=== PATIENT | male | born 1985 | race Caucasian/White ===

== ENCOUNTER 2017-02-28 08:56 | Emergency (ER) | payer SELFPAY | END 2017-02-28 10:15 | disposition home or self-care (01) | LOC: ERS 08:56 | DX: J20.9 Acute bronchitis, unspecified (principal); E03.9 Hypothyroidism, unspecified; F41.9 Anxiety disorder, unspecified; F17.210 Nicotine dependence, cigarettes, uncomplicated | CPT/HCPCS: 99283 ==

== ENCOUNTER 2017-07-05 00:20 | Emergency (ER) | payer SELFPAY, OTHER ==
[2017-07-05 01:08] LABS: #Basophils 0.1 thou/uL (0.0-0.2); #Eosinphils 0.6 thou/uL (0.0-0.7); #Lymphocytes 2.6 thou/uL (1.20-3.40); #Monocytes 0.7 thou/uL (0.11-0.59); #Neutrophils 7.2 thou/uL (1.40-6.50); %Basophils 0.7 % (0.0-1.0); %Lymphocytes 23.1 % (21.0-51.0); %Monocytes 6.6 % (0.0-10.0); %Neutrophils 64.6 % (42.0-75.0); Hemoglobin 16.4 g/dL (14.0-18.0); Mean Corpuscular HGB CONC 34.2 g/dL (32.0-36.0); Mean Corpuscular Hemoglobin 31.1 pg (27.0-31.0); Mean Corpuscular Volume 91.1 fl (80.0-94.0); Mean Platelet Volume 7.3 fL (7.4-10.4); Platelet Count 254 thou/uL (130-400); RBC Distribution Width 11.6 % (11.5-14.5); Red Blood Cell (RBC) Count 5.27 mill/uL (4.70-6.10); White Blood Cell (WBC) Count 11.1 thou/uL (4.8-10.8)
[2017-07-05 01:27] LABS: ALT (SGPT) 25 U/L (8-55); AST (SGOT) 20 U/L (5-34); Albumin 4.3 g/dL (3.5-5.0); Alkaline Phosphatase 87 U/L (40-150); Anion Gap 12 mmol/L (10-20); BUN (Urea Nitrogen) 19 mg/dL (8.9-20.6); Bilirubin, Total 0.4 mg/dL (0.2-1.2); Calc. Creatinine Clearance 0 mL/min (70-130); Calcium 9.7 mg/dL (7.8-10.44); Carbon Dioxide 23 mmol/L (22-29); Chloride 107 mmol/L (98-107); Estimated GFR-MDRD 83; Globulin 2.4 g/dL (2.4-3.5); Glucose 138 mg/dL (70-105); Potassium 3.7 mmol/L (3.5-5.1); Protein, Total 6.7 g/dL (6.0-8.3); Sodium 138 mmol/L (136-145)
[2017-07-05 01:30] LABS: CKMB 1.1 ng/mL (0-6.6); Troponin I Less than 0.010 ng/mL (< 0.028)
[2017-07-05] MEDS ORDERED: Mag-Al 1200 mg/1200 mg/30 ML UDCUP ONE (01:59)
[2017-07-05] MEDS ORDERED: Lidocaine Viscous Sol 2% 15 ml UD Cup ONE (01:59)
[2017-07-05] MEDS ORDERED: Pantoprazole 40 MG VIAL ONE (01:59)
[2017-07-05 02:26] LABS: CK (CPK) 110 U/L (30-200); Lipase 32 U/L (8-78)
[2017-07-05 05:07] LABS: Troponin I Less than 0.010 ng/mL (< 0.028)
--- NOTE | 2017-07-05 07:42 | RAD ---
CHEST 1 VIEW: Date: 07/05/17 HISTORY: Chest pain. COMPARISON: 11/20/13. FINDINGS: Cardiac silhouette is magnified by projection. Pulmonary vasculature is unremarkable. Mediastinum is midline. No lobar consolidation or evidence of pneumothorax. IMPRESSION: No active cardiopulmonary abnormalities are demonstrated. POS: [facility]
--- NOTE | 2017-08-10 22:50 | EKG ---
Test Reason : Blood Pressure : / mmHG Vent. Rate : 061 BPM Atrial Rate : 061 BPM P-R Int : 166 ms QRS Dur : 094 ms QT Int : 408 ms P-R-T Axes : 032 -23 036 degrees QTc Int : 410 ms Normal sinus rhythm with sinus arrhythmia Normal ECG Confirmed by BRADY GUERRIER MD ([id number]), multimedia editor HEMAL RODAS ([id number]) on 08/10/2017 10:50:04 PM Referred By: Confirmed By:BRADY GUERRIER MD
== END 2017-07-05 05:51 | disposition home or self-care (01) ==
LOC: ERS 00:20
DX: R07.89 Other chest pain (principal); E03.9 Hypothyroidism, unspecified; F41.9 Anxiety disorder, unspecified; F17.210 Nicotine dependence, cigarettes, uncomplicated
CPT/HCPCS: 36415; 71045; 80053; 82553; 83690; 84484; 85025; 93005; 96374; C9113

== ENCOUNTER 2017-07-23 17:44 | Emergency (ER) | payer SELFPAY | END 2017-07-23 18:58 | disposition home or self-care (01) | LOC: ERS 17:44 | DX: J40 Bronchitis, not specified as acute or chronic (principal); E03.9 Hypothyroidism, unspecified; F41.9 Anxiety disorder, unspecified; F17.210 Nicotine dependence, cigarettes, uncomplicated | CPT/HCPCS: 99283 ==

== ENCOUNTER 2017-07-24 07:43 | Emergency (ER) | payer SELFPAY ==
--- NOTE | 2017-07-24 08:44 | RAD ---
SINGLE VIEW OF THE CHEST: Comparison: 07-05-17 History: Bronchitis, cough. FINDINGS: Single view of the chest shows a normal sized cardiomediastinal silhouette. There is no evidence of c onsolidation, mass, or pleural effusion. The bones are unremarkable. IMPRESSION: No evidence of acute cardiopulmonary disease. POS: [facility]
[2017-07-24] MEDS ORDERED: guaiFENesin/DM ER PO SCH (09:45)
== END 2017-07-24 10:42 | disposition home or self-care (01) ==
LOC: ERS 07:43
DX: J45.909 Unspecified asthma, uncomplicated (principal); Z71.6 Tobacco abuse counseling; E03.9 Hypothyroidism, unspecified; F41.9 Anxiety disorder, unspecified; F31.9 Bipolar disorder, unspecified; F17.210 Nicotine dependence, cigarettes, uncomplicated
CPT/HCPCS: 71045; 94640; 99406; J7620

== ENCOUNTER 2017-07-29 07:02 | Emergency (ER) | payer SELFPAY ==
[2017-07-29 07:34] LABS: #Basophils 0.1 thou/uL (0.0-0.2); #Eosinphils 0.2 thou/uL (0.0-0.7); #Lymphocytes 2.9 thou/uL (1.20-3.40); #Monocytes 0.9 thou/uL (0.11-0.59); #Neutrophils 6.8 thou/uL (1.40-6.50); %Basophils 0.7 % (0.0-1.0); %Eosinophils 1.4 % (0.0-10.0); %Lymphocytes 26.8 % (21.0-51.0); %Monocytes 7.8 % (0.0-10.0); %Neutrophils 63.3 % (42.0-75.0); Hemoglobin 17.3 g/dL (14.0-18.0); Mean Corpuscular HGB CONC 35.2 g/dL (32.0-36.0); Mean Corpuscular Hemoglobin 31.8 pg (27.0-31.0); Mean Corpuscular Volume 90.6 fl (80.0-94.0); Mean Platelet Volume 7.3 fL (7.4-10.4); Platelet Count 283 thou/uL (130-400); RBC Distribution Width 11.4 % (11.5-14.5); Red Blood Cell (RBC) Count 5.43 mill/uL (4.70-6.10); White Blood Cell (WBC) Count 10.8 thou/uL (4.8-10.8)
[2017-07-29 07:51] LABS: ALT (SGPT) 39 U/L (8-55); AST (SGOT) 26 U/L (5-34); Albumin 4.6 g/dL (3.5-5.0); Alkaline Phosphatase 87 U/L (40-150); Anion Gap 15 mmol/L (10-20); BUN (Urea Nitrogen) 10 mg/dL (8.9-20.6); Bilirubin, Total 0.6 mg/dL (0.2-1.2); CK (CPK) 105 U/L (30-200); Calc. Creatinine Clearance 0 mL/min (70-130); Calcium 9.5 mg/dL (7.8-10.44); Carbon Dioxide 25 mmol/L (22-29); Chloride 104 mmol/L (98-107); Estimated GFR-MDRD 83; Globulin 2.6 g/dL (2.4-3.5); Glucose 94 mg/dL (70-105); Potassium 3.6 mmol/L (3.5-5.1); Protein, Total 7.2 g/dL (6.0-8.3); Sodium 140 mmol/L (136-145)
[2017-07-29 07:55] LABS: CKMB 0.7 ng/mL (0-6.6); Troponin I Less than 0.010 ng/mL (< 0.028)
[2017-07-29] MEDS ORDERED: Dexamethasone 4 mg/ml Vial ONE ×2 (09:10→09:31)
[2017-07-29] MEDS ORDERED: Ketorolac Tromethamine 60 MG/2 ML VIAL ONE ×2 (09:10→09:31)
--- NOTE | 2017-07-29 09:57 | RAD ---
PORTABLE AP CHEST: Date: 07/29/17 HISTORY: Chest pain, cough, and congestion. COMPARISON: 07/24/17. FINDINGS: Cardiac silhouette and pulmonary vasculature are within normal limits. The lungs remain clear. There has been no interval change from the prior exam. IMPRESSION: No acute cardiopulmonary process. POS: [facility]
== END 2017-07-29 09:38 | disposition home or self-care (01) ==
LOC: ERS 07:02
DX: J40 Bronchitis, not specified as acute or chronic (principal); E03.9 Hypothyroidism, unspecified; F41.9 Anxiety disorder, unspecified; F17.210 Nicotine dependence, cigarettes, uncomplicated
CPT/HCPCS: 36415; 71045; 80053; 82553; 84484; 85025; 93005; 94640; 94760; 99406; J1100; J1885; J7620

== ENCOUNTER 2018-01-08 15:22 | Emergency (ER) | payer OTHER, SELFPAY ==
[2018-01-08] MEDS ORDERED: Dexamethasone 10 MG/ML VIAL ONE (17:36)
[2018-01-08] MEDS ORDERED: Ketorolac Tromethamine 60 MG/2 ML VIAL ONE (17:36)
--- NOTE | 2018-01-08 18:36 | RAD ---
TWO VIEWS OF THE CHEST: Comparison: 09-30-16 History: Cough for one week with chest pain. FINDINGS: Two views of the chest show normal sized cardiomediastinal silhouette. There is no evidence of consol idation, mass, or pleural effusion. The bones are unremarkable. IMPRESSION: No evidence of acute cardiopulmonary disease. POS: [facility]
== END 2018-01-08 18:11 | disposition home or self-care (01) ==
LOC: ERS 15:22
DX: J06.9 Acute upper respiratory infection, unspecified (principal); E03.9 Hypothyroidism, unspecified; F41.9 Anxiety disorder, unspecified; F17.210 Nicotine dependence, cigarettes, uncomplicated
CPT/HCPCS: 71046; 94640; 96372; J1100; J1885

== ENCOUNTER 2018-05-02 01:45 | Emergency (ER) | payer SELFPAY ==
[2018-05-02 02:49] LABS: #Basophils 0.1 thou/uL (0.0-0.2); #Eosinphils 0.3 thou/uL (0.0-0.7); #Lymphocytes 1.9 thou/uL (1.20-3.40); #Monocytes 0.5 thou/uL (0.11-0.59); #Neutrophils 4.9 thou/uL (1.40-6.50); %Eosinophils 4.3 % (0.0-10.0); %Lymphocytes 24.8 % (21.0-51.0); %Monocytes 6.5 % (0.0-10.0); %Neutrophils 63.4 % (42.0-75.0); Mean Corpuscular HGB CONC 34.3 g/dL (32.0-36.0); Mean Corpuscular Hemoglobin 30.9 pg (27.0-31.0); Mean Platelet Volume 8.7 fL (7.4-10.4); Platelet Count 202 thou/uL (130-400); RBC Distribution Width 11.2 % (11.5-14.5); Red Blood Cell (RBC) Count 4.85 mill/uL (4.70-6.10); White Blood Cell (WBC) Count 7.8 thou/uL (4.8-10.8)
[2018-05-02 03:08] LABS: ALT (SGPT) 20 U/L (8-55); AST (SGOT) 17 U/L (5-34); Albumin 4.3 g/dL (3.5-5.0); Alkaline Phosphatase 79 U/L (40-150); Anion Gap 11 mmol/L (10-20); BUN (Urea Nitrogen) 11 mg/dL (8.9-20.6); Bilirubin, Total 0.8 mg/dL (0.2-1.2); Calc. Creatinine Clearance 0 mL/min (70-130); Calcium 9.8 mg/dL (7.8-10.44); Carbon Dioxide 25 mmol/L (22-29); Chloride 108 mmol/L (98-107); Estimated GFR-MDRD 83; Globulin 2.1 g/dL (2.4-3.5); Glucose 87 mg/dL (70-105); Potassium 3.8 mmol/L (3.5-5.1); Protein, Total 6.4 g/dL (6.0-8.3); Sodium 140 mmol/L (136-145)
[2018-05-02] MEDS ORDERED: Ketorolac Tromethamine 30 MG/ML VIAL ONE (03:32)
[2018-05-02] MEDS ORDERED: Ondansetron PF 4 MG/2 ML Vial ONE (04:21)
[2018-05-02] MEDS ORDERED: Pantoprazole 40 MG VIAL ONE (04:21)
--- NOTE | 2018-05-02 07:57 | ULT ---
PRELIMINARY REPORT/[facility]/EMERGENTY AFTER-HOURS PROCEDURE US Scrotum and US Duplex Artery or Vein, Scrotum, Limited EXAM DATE/TIME: 05/02/2018 2:02 AM CLINICAL HISTORY: 32 years old, male; Pain and signs and symptoms; Swelling, testicles or scrotum; Scrotum pain TECHNIQUE: Real-time ultrasound of the scrotum. Real-time duplex ultrasound scan of the arterial or venous flow of the scrotum with B-mode, color Doppler flow and spectral waveform analysis. Limited exam. COMPARISON: No relevant prior studies available. FINDINGS: Right Testicle: RIGHT testicle measures 4.5 x 3.2 x 2.7 cm. Normal arterial and venous waveforms. Left Testicle: LEFT testicle measures 4.90 2.8 x 2.7 cm. Normal arterial and venous waveforms. Epididymides: RIGHT epididymis measures 1.1 cm. LEFT epididymis measures 1.4 cm. Scrotum: There is a small LEFT hydrocele and probably trace RIGHT hydrocele. There is scrotal wall th ickening. IMPRESSION: 1. Small bilateral hydroceles. Mild scrotal edema. 2. No testicular torsion or evidence of epididymal orchitis on either side. Thank you for allowing us to participate in the care of your patient. Dictated and Authenticated by: Jin Potts MD 05/02/2018 2:37 AM Central Time ([place] & [place]) FINAL REPORT SCROTAL SONOGRAM WITH DUPLEX EVALUATION: Date: 05-02-18 Performed on emergency basis at 0204 hours. Comparison: 08-01-11 FINDINGS: I agree with the preliminary report by Dr. Potts from [facility]. No evidence of testicular t orsion or mass. Small bilateral hydroceles. Code QA POS: [facility]
--- NOTE | 2018-05-02 08:00 | CT ---
PRELIMINARY REPORT/[facility]/EMERGENTY AFTER-HOURS PROCEDURE CT Abdomen and Pelvis Without Contrast EXAM DATE/TIME: 05/02/2018 2:42 AM CLINICAL HISTORY: 32 years old, male; Pain; Abdominal pain; Acute; Patient HX: PT C/O lower abdominal and back pain. R/ O torsion. Surgical history of orthopedic surgery, r wrist, date of surgery as child. Verified 14- 9. TECHNIQUE: Axial computed tomography images of the abdomen and pelvis without contrast. Coronal reformatted images were created and reviewed. COMPARISON: No relevant prior studies available. FINDINGS: Lower thorax: The visualized portions of the lung bases are normal. ABDOMEN: Liver: The liver is within normal limits for this noncontrast study. Gallbladder and bile ducts: The gallbladder is normal. There is no evidence of biliary ductal dilatio n. Pancreas: The pancreas appears normal. No ductal dilatation. Spleen: The spleen is normal. Adrenals: The adrenal glands are normal. Kidneys and ureters: The kidneys appear normal. No hydronephrosis. Stomach and bowel: The stomach is normal. The duodenum is unremarkable. The duodenum is unremarkable. There is no evidence of intestinal perforation or obstruction. Appendix: A normal appendix is identified. PELVIS: Bladder: Unremarkable as visualized. Reproductive: The prostate gland and seminal vesicles are normal. ABDOMEN and PELVIS: Intraperitoneal space: Normal. No free air. No significant fluid collection. Bones/joints: No acute fracture. No dislocation. Soft tissues: Unremarkable. Vasculature: Normal. No abdominal aortic aneurysm. Lymph nodes: Normal. No enlarged lymph nodes. IMPRESSION: No acute abdominal pelvic pathology. Thank you for allowing us to participate in the care of your patient. Dictated and Authenticated by: Jin Potts MD 05/02/2018 3:00 AM Central Time ([place] & [place]) CT ABDOMEN AND PELVIS NONCONTRAST: 05/02/2018 0244 HOURS HISTORY: Flank pain. Exam performed on an emergency basis. COMPARISON: 08/10/2016 FINDINGS: Agree with the preliminary report by from [facility]. No CT evidence of urinary tract obstruction or calcification. Lack of contrast decreases the sensitivity of the exam for other abnormalities. POS: [facility]
== END 2018-05-02 05:00 | disposition home or self-care (01) ==
LOC: ERS 01:45
DX: N50.811 Right testicular pain (principal); R10.9 Unspecified abdominal pain; E03.9 Hypothyroidism, unspecified; K21.9 Gastro-esophageal reflux disease without esophagitis; F41.9 Anxiety disorder, unspecified; Z87.891 Personal history of nicotine dependence
CPT/HCPCS: 36415; 74176; 76870; 80053; 85025; 93976; 96361; 96374; 96375; C9113; J0500; J1885; J2405

== ENCOUNTER 2018-07-05 11:32 | Emergency (ER) | payer SELFPAY ==
[2018-07-05 12:16] LABS: #Eosinphils 0.3 thou/uL (0.0-0.7); #Lymphocytes 0.9 thou/uL (1.20-3.40); #Monocytes 0.6 thou/uL (0.11-0.59); #Neutrophils 8.2 thou/uL (1.40-6.50); %Basophils 0.4 % (0.0-1.0); %Eosinophils 2.7 % (0.0-10.0); %Lymphocytes 8.9 % (21.0-51.0); %Monocytes 6.2 % (0.0-10.0); %Neutrophils 81.9 % (42.0-75.0); Hemoglobin 14.3 g/dL (14.0-18.0); Mean Corpuscular HGB CONC 34.8 g/dL (32.0-36.0); Mean Corpuscular Volume 89.3 fL (78.0-98.0); Mean Platelet Volume 7.9 fL (7.4-10.4); Platelet Count 206 thou/uL (130-400); RBC Distribution Width 11.6 % (11.5-14.5); Red Blood Cell (RBC) Count 4.59 mill/uL (4.70-6.10)
[2018-07-05 12:31] LABS: ALT (SGPT) 13 U/L (8-55); AST (SGOT) 15 U/L (5-34); Albumin 4.1 g/dL (3.5-5.0); Alkaline Phosphatase 85 U/L (40-150); Anion Gap 9 mmol/L (10-20); BUN (Urea Nitrogen) 13 mg/dL (8.9-20.6); Bilirubin, Total 0.6 mg/dL (0.2-1.2); Calc. Creatinine Clearance 0 mL/min (70-130); Calcium 9.5 mg/dL (7.8-10.44); Carbon Dioxide 28 mmol/L (22-29); Chloride 107 mmol/L (98-107); Estimated GFR-MDRD 80; Glucose 92 mg/dL (70-105); Potassium 3.6 mmol/L (3.5-5.1); Protein, Total 6.1 g/dL (6.0-8.3); Sodium 140 mmol/L (136-145)
--- NOTE | 2018-07-05 12:39 | RAD ---
Exam: Chest one view HISTORY:Pain Comparison: 07/29/2017 FINDINGS: Lungs: No masses or consolidation. Cardiac silhouette: Normal size Pulmonary vessels: Normal Pleural Spaces: Clear Pneumothorax: None Osseous abnormalities: None of acuity. IMPRESSION: No focal consolidation.
[2018-07-05] MEDS ORDERED: Ketorolac Tromethamine 30 MG/ML VIAL ONE (13:07)
--- NOTE | 2018-07-05 13:29 | RAD ---
XR Hand Rt 3 View STANDARD: 07/05/2018 12:58 PM CLINICAL INDICATION: Posttraumatic pain COMPARISON: None. FINDINGS: Fracture:No fracture. Arthropathy:None of significance. Incidental findings:None of significance. IMPRESSION: 1. No acute osseous abnormality.
== END 2018-07-05 14:29 | disposition home or self-care (01) ==
LOC: ERS 11:32
DX: R07.9 Chest pain, unspecified (principal); E03.9 Hypothyroidism, unspecified; K21.9 Gastro-esophageal reflux disease without esophagitis; F41.9 Anxiety disorder, unspecified; Z79.899 Other long term (current) drug therapy; Z87.891 Personal history of nicotine dependence
CPT/HCPCS: 36415; 71045; 80053; 84484; 85025; 93005; J1885

== ENCOUNTER 2021-07-19 20:24 | Emergency (ER) | payer SELFPAY ==
[2021-07-19 22:43] LABS: #Eosinphils 0.3 thou/uL (0.0-0.7); #Lymphocytes 1.3 thou/uL (1.20-3.40); #Monocytes 0.9 thou/uL (0.11-0.59); #Neutrophils 4.7 thou/uL (1.40-6.50); %Basophils 0.5 % (0.0-1.0); %Lymphocytes 18.6 % (21.0-51.0); %Monocytes 12.1 % (0.0-10.0); %Neutrophils 64.9 % (42.0-75.0); Hemoglobin 15.7 g/dL (14.0-18.0); Mean Corpuscular HGB CONC 33.8 g/dL (32.0-36.0); Mean Corpuscular Hemoglobin 31.9 pg (27.0-31.0); Mean Corpuscular Volume 94.4 fL (78.0-98.0); Mean Platelet Volume 7.4 fL (7.4-10.4); Platelet Count 197 thou/uL (130-400); RBC Distribution Width 11.9 % (11.5-14.5); Red Blood Cell (RBC) Count 4.91 mill/uL (4.70-6.10); White Blood Cell (WBC) Count 7.2 thou/uL (4.8-10.8)
[2021-07-19] MEDS ORDERED: D5 1/2 NS w/20 mEq KCL 0 ML ONE (23:00)
[2021-07-19] MEDS ORDERED: Dexamethasone 4 MG TAB ONE (23:00)
[2021-07-19 23:08] LABS: ALT (SGPT) 20 U/L (8-55); AST (SGOT) 21 U/L (5-34); Albumin 4.4 g/dL (3.5-5.0); Alkaline Phosphatase 90 U/L (40-110); Anion Gap 11 mmol/L (10-20); BUN (Urea Nitrogen) 11 mg/dL (8.9-20.6); Bilirubin, Total 0.5 mg/dL (0.2-1.2); Calc. Creatinine Clearance 0 mL/min (70-130); Calcium 9.2 mg/dL (7.8-10.44); Carbon Dioxide 24 mmol/L (22-29); Chloride 105 mmol/L (98-107); Globulin 2.4 g/dL (2.4-3.5); Glucose 89 mg/dL (70-105); Protein, Total 6.8 g/dL (6.0-8.3); Sodium 136 mmol/L (136-145)
== END 2021-07-20 00:38 | disposition home or self-care (01) ==
LOC: ERS 20:24
DX: J20.9 Acute bronchitis, unspecified (principal); E03.9 Hypothyroidism, unspecified; K21.9 Gastro-esophageal reflux disease without esophagitis; Z87.891 Personal history of nicotine dependence
CPT/HCPCS: 36415; 71045; 80053; 85025; J3480; J8540